=== PATIENT | male | born 1970 | race Caucasian/White ===

== ENCOUNTER 2023-10-21 17:09 | Emergency (ER) | payer BC, SELFPAY ==
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
[2023-10-21 17:27] VITALS: BP 113/49; BP 138/84; PULSE 58; PULSE 60; RESP 16; O2SAT 98; O2SAT 99; BMI 27.6
[2023-10-21 17:28] LABS: Glucose, Whole Blood 201 mg/dL (60-115)
[2023-10-21 17:52] LABS: Glucose, Whole Blood 216 mg/dL (60-115)
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
[2023-10-21 18:09] VITALS: BP 113/49; PULSE 60; RESP 16; TEMP -17.7; TEMP 0; O2SAT 99
== END 2023-10-21 18:14 | disposition home or self-care (01) ==
LOC: HO.ED 18:13
PROVIDERS: Emergency Provider Emergency Medicine
DX: E11.65 Type 2 diabetes mellitus with hyperglycemia (principal); Z79.899 Other long term (current) drug therapy
CPT/HCPCS: 82947; 99282; 99284